=== PATIENT | male | born 1960 | race Caucasian/White ===

== ENCOUNTER 2019-04-14 06:53 | Day surgery (SDC) | payer OTHER ==
[~2019-04-14] VITALS: Ht 172.7 cm; Wt 95.0 kg
[~2019-04-14 06:53] MED LIST: NO HOME MEDICATIONS; NORCO 325 MG-7.1 TAB PO; ZESTRIL 20MG TA20 MG PO
[2019-04-14] MEDS ORDERED: ZESTRIL40 MG PO (07:14)
[2019-04-14 07:43] VITALS: BP 126/72; PULSE 87; TEMP 97.3
[2019-04-14 08:32] VITALS: BP 113/70; PULSE 86; TEMP 97.6
[2019-04-14 08:45] VITALS: BP 113/70; PULSE 84
[2019-04-14 09:00] VITALS: BP 107/69; PULSE 80
[2019-04-14 09:15] VITALS: BP 101/65; PULSE 75
--- NOTE | 2019-04-14 10:36 | NUR ---
PT RETURNED FROM ENDO OR SUITE PER CART. PT ALERT AND ORIENTATED. DENIES PAIN OR NAUSEA UPON ARRIVAL. REQUESTS COFFEE, WATER AND BLUE BRAND MUFFIN. LUNGS CLEAR, HRR. VSS. WILL CONT TO MONITOR.
--- NOTE | 2019-04-14 10:40 | NUR ---
PT TOLERATING FOOD AND FLUIDS, DENIES NAUSEA OR PAIN. VSS. SATS WITHIN NORMAL LIMITS. WILL CONT TO MONITOR.
--- NOTE | 2019-04-14 10:47 | NUR ---
PT ALERT AND ORIENTATED AND DENIES NAUSEA OR PAIN AT THIS TIME. IV DISCONTINUED TO RIGHT HAND, TOLERATED WELL. DISCHARGE INSTRUCTIONS GIVEN AND PT VOICES UNDERSTANDING. PT DISCHARGED PER VISITOR ENTRANCE, DAUGHTER CAME TO PICK HIM UP AND TAKE HIM HOME.
== END 2019-04-14 10:55 | disposition home or self-care (01) ==
LOC: SDCO 06:53
DX: Z12.11 Encounter for screening for malignant neoplasm of colon (principal); K57.30 Diverticulosis of large intestine without perforation or abscess without bleeding
CPT/HCPCS: J2250; J2405; J3010; J7030

== ENCOUNTER → 2020-04-26 | Outpatient (CLI) | payer OTHER ==
[~2020-04-26] MED LIST changes: +ZESTRIL40 MG PO
== END ==
LOC: COL.RAD 12:27
DX: Z01.812 Encounter for preprocedural laboratory examination (principal); H05.20 Unspecified exophthalmos
CPT/HCPCS: Q9967

== ENCOUNTER 2020-08-30 05:55 | Day surgery (SDC) | payer OTHER ==
[~2020-08-30] VITALS: Ht 172.7 cm; Wt 100.4 kg
[2020-08-30 06:21] VITALS: BP 140/94; PULSE 74; TEMP 98.3
[2020-08-30] MEDS ORDERED: PROTONIX 40MG T40 MG PO (06:38)
[2020-08-30 07:25] VITALS: BP 118/74; PULSE 79; TEMP 97.9
--- NOTE | 2020-08-30 07:25 | NUR ---
Patient arrives back to [facility] alert, denies pain or nausea. Patient ambulated from cart to chair with standby assist and without any complications. Patient monitor applied, vitals stable. Patient given water and muffin.
[2020-08-30 07:45] VITALS: BP 116/83; PULSE 72
--- NOTE | 2020-08-30 07:45 | NUR ---
Patient tolerated water and muffin without any nausea. Vitals stable.
--- NOTE | 2020-08-30 07:55 | NUR ---
Dr Lucio into see francisco to go over procedure results.
--- NOTE | 2020-08-30 08:00 | NUR ---
Dismissal instructions gone over with patient. Patient voices understanding and all questions answered.
--- NOTE | 2020-08-30 08:05 | NUR ---
Patient discharged to patient enterance via wheelchair with patient's spouse. Both leave thanking staff for services.
== END 2020-08-30 08:05 | disposition home or self-care (01) ==
LOC: SDCO
DX: K21.00 Gastro-esophageal reflux disease with esophagitis, without bleeding (principal); K22.2 Esophageal obstruction; K22.8 Other specified diseases of esophagus; K44.9 Diaphragmatic hernia without obstruction or gangrene; I10 Essential (primary) hypertension; Z79.899 Other long term (current) drug therapy; Z20.822 Contact with and (suspected) exposure to COVID-19
CPT/HCPCS: C1726; J2704; J7030